=== PATIENT | male | born 1950 | race Caucasian/White ===

== ENCOUNTER 2020-06-12 12:35 | Day surgery (SDC) | payer MEDICARE, BC ==
[2020-06-07 12:35] LABS: BASOPHILS % (AUTO) 0.2 % (0-1); EOSINOPHILS # (AUTO) 0.4 X10'3 (0-0.9); EOSINOPHILS % (AUTO) 8.7 % (0-6); HEMATOCRIT 42.6 % (42.0-52.0); HEMOGLOBIN 14.2 g/dl (14.0-17.9); LYMPHOCYTES # (AUTO) 1.4 X10'3 (1.1-4.8); MEAN CORPUSCULAR HEMOGLOBIN 30.2 PG (27.0-31.0); MEAN CORPUSCULAR HGB CONC 33.3 g/dL (33.0-36.5); MEAN CORPUSCULAR VOLUME 90.5 FL (78-98); MEAN PLATELET VOLUME 7.6 FL (7.4-10.4); MONOCYTES # (AUTO) 0.3 X10'3 (0-0.9); MONOCYTES % (AUTO) 7.4 % (2-12); NEUTROPHILS # (AUTO) 2.2 X10'3 (1.8-7.7); NEUTROPHILS % (AUTO) 50.7 % (42-75); PLATELET COUNT 197 X10'3 (140-440); RED BLOOD COUNT 4.71 X10'6 (4.70-6.10); RED CELL DISTRIBUTION WIDTH 13.7 % (11.5-14.5); WHITE BLOOD COUNT 4.3 X10'3 (4.5-11.0)
[2020-06-07 12:44] LABS: ALBUMIN 3.7 G/DL (3.4-5.0); ANION GAP 6 (8-16); BLOOD UREA NITROGEN 11 MG/DL (7-18); BUN/CREATININE RATIO 14.7 (5.4-32.0); CALCIUM 8.9 MG/DL (8.5-10.1); CHLORIDE 104 MMOL/L (99-107); CREATININE 0.75 MG/DL (0.60-1.10); GLUCOSE 103 MG/DL (70-104); POTASSIUM 4.4 MMOL/L (3.5-5.1); SODIUM 140 MMOL/L (135-145); TOTAL CARBON DIOXIDE 30.5 MMOL/L (24-32); eGFR > 90 ML/MIN
[2020-06-07 12:45] LABS: PARTIAL THROMBOPLASTIN TIME 26 SECONDS (22-32)
[~2020-06-12] VITALS: Ht 172.7 cm; Wt 88.1 kg
[2020-06-12] VITALS (9 sets, daily range): BP systolic 131–164; BP diastolic 75–96
[2020-06-12] MEDS ORDERED: normal saline 1,000 ML IV SCH (12:50)
[2020-06-12] MEDS ORDERED: diphenhydrAMINE 25mg capsule PO PRN (12:50)
[2020-06-12] MEDS ORDERED: LORazepam 0.5 MG tablet PO PRN (12:50)
[2020-06-12] MEDS ORDERED: PANT40TA54 PO (13:20)
[2020-06-12] MEDS ORDERED: METO-395 PO (13:20)
[2020-06-12] MEDS ORDERED: PRAM0.5T12 PO (13:20)
[2020-06-12] MEDS ORDERED: TEST200V10 IM (13:20)
[2020-06-12] MEDS ORDERED: ATOR-2 PO (13:20)
[2020-06-12] MEDS ORDERED: LISI40TA13 PO (13:20)
[2020-06-12] MEDS ORDERED: ASPI-1265 PO (13:20)
[2020-06-12] MEDS ORDERED: GABA-530 PO (13:20)
[2020-06-12] MEDS ORDERED: BUTA-281 PO (13:21)
[2020-06-12] MEDS ORDERED: TRAZ-256 PO (13:23)
[2020-06-12] MEDS ORDERED: LIDOcaine/PRILOcaine 5gm cream TP ONE (13:55)
[2020-06-12] MEDS ORDERED: midazolam 2 mg/2 ml injection ONE (14:32)
[2020-06-12] MEDS ORDERED: nitroGLYCERIN-Tridil 50MG/D5W 250 ML IV ONE (14:32)
[2020-06-12] MEDS ORDERED: fentaNYL/PF 50MCG/1 ML 2ML syringe ONE (14:32)
[2020-06-12] MEDS ORDERED: LIDOcaine 1% (10mg/ml)w/preservative injection 20ml MDV ONE (14:32)
[2020-06-12] MEDS ORDERED: heparin 1,000unit/ml 10ml vial 10 ML ONE (14:32)
[2020-06-12] MEDS ORDERED: verapamil 2.5 mg/ml inj IV ONE (14:32)
[2020-06-12] MEDS ORDERED: iohexol 350MG/ML 100ml bottle IV ONE (14:32)
[2020-06-12] MEDS ORDERED: iohexol 350 MG/ML 50ML vial IV ONE (15:20)
[2020-06-12] MEDS ORDERED: ticagrelor 90mg tablet ONE (15:47)
[2020-06-12] MEDS ORDERED: OXAZEpam 15mg capsule PO PRN (16:20)
[2020-06-12] MEDS ORDERED: nitroGLYCERIN 0.4mg SUBLingual tab SL PRN (16:20)
[2020-06-12] MEDS ORDERED: proCHLORperazine 10 MG/2 ml inj IV PRN (16:20)
[2020-06-12] MEDS ORDERED: HYDROcodone/acetaminophen 10/325mg tab PO PRN (16:20)
[2020-06-12] MEDS ORDERED: ondansetron/PF 4mg/2ml inj IV PRN (16:20)
[2020-06-12] MEDS ORDERED: HYDROcodone/acetaminophen 5mg/325mg tablet PO PRN (16:20)
== END 2020-06-12 19:30 | disposition home or self-care (01) ==
LOC: SSTAY O 12:35
PROVIDERS: ATTEND Internal Medicine Interventional Cardiology
DX: I25.10 Atherosclerotic heart disease of native coronary artery without angina pectoris (principal); R94.39 Abnormal result of other cardiovascular function study; I10 Essential (primary) hypertension; G47.33 Obstructive sleep apnea (adult) (pediatric); E78.5 Hyperlipidemia, unspecified; Z87.891 Personal history of nicotine dependence
CPT/HCPCS: 36415; 80048; 85025; 85610; 85730; 93005; 93458; 99152; 99153; C1725; C1751; C1769; C1876; C1894; C9600; J1644; J2001; J2250; J3010; J7030; Q0163; Q9967; A4620; J3490

== ENCOUNTER 2020-11-17 21:55 | Emergency (ER) | payer MEDICARE, BC ==
[~2020-11-17] VITALS: Ht 172.7 cm; Wt 77.0 kg
[~2020-11-17 21:55] MED LIST: ASPI-1265 PO; ATOR-2 PO; BUTA-281 PO; GABA-530 PO; LISI40TA13 PO; METO-395 PO; PANT40TA54 PO; PRAM0.5T12 PO; TEST200V10 IM; TRAZ-256 PO
[2020-11-17 22:24] LABS: BASOPHILS % (AUTO) 0.9 % (0-1); EOSINOPHILS # (AUTO) 0.2 X10'3 (0-0.9); EOSINOPHILS % (AUTO) 4.7 % (0-6); HEMATOCRIT 38.6 % (42.0-52.0); HEMOGLOBIN 13.1 g/dl (14.0-17.9); LYMPHOCYTES % (AUTO) 19.7 % (21-51); MEAN CORPUSCULAR HEMOGLOBIN 30.7 PG (27.0-31.0); MEAN CORPUSCULAR HGB CONC 33.9 g/dL (33.0-36.5); MEAN CORPUSCULAR VOLUME 90.6 FL (78-98); MEAN PLATELET VOLUME 7.7 FL (7.4-10.4); MONOCYTES # (AUTO) 0.4 X10'3 (0-0.9); MONOCYTES % (AUTO) 6.7 % (2-12); NEUTROPHILS # (AUTO) 3.6 X10'3 (1.8-7.7); PLATELET COUNT 184 X10'3 (140-440); RED BLOOD COUNT 4.26 X10'6 (4.70-6.10); RED CELL DISTRIBUTION WIDTH 13.7 % (11.5-14.5); WHITE BLOOD COUNT 5.3 X10'3 (4.5-11.0)
[2020-11-17 22:47] LABS: ALANINE AMINOTRANSFERASE 39 U/L (12-78); ALBUMIN 3.8 G/DL (3.4-5.0); ALBUMIN/GLOBULIN RATIO 1.1 (1.1-1.5); ALKALINE PHOSPHATASE 64 IU/L (46-116); ANION GAP 9 (8-16); ASPARTATE AMINO TRANSFERASE 26 U/L (10-37); BILIRUBIN,TOTAL 0.3 MG/DL (0.1-1.0); BLOOD UREA NITROGEN 25 MG/DL (7-18); BUN/CREATININE RATIO 20.7 (5.4-32.0); CALCIUM 8.8 MG/DL (8.5-10.1); CHLORIDE 103 MMOL/L (99-107); CREATININE 1.21 MG/DL (0.60-1.10); GLUCOSE 144 MG/DL (70-104); POTASSIUM 4.3 MMOL/L (3.5-5.1); SODIUM 140 MMOL/L (135-145); TOTAL CARBON DIOXIDE 27.7 MMOL/L (24-32); TOTAL PROTEIN 7.3 G/DL (6.4-8.2); eGFR 59 ML/MIN
[2020-11-17] MEDS ORDERED: normal saline 1000ML IV soln IVB ONE (23:15)
[2020-11-17] MEDS ORDERED: pantoprazole 40 MG vial IV ONE (23:15)
[2020-11-18 01:52] VITALS: BP 102/63
--- NOTE | 2020-11-18 02:11 | NUR ---
pt gait tested and MD notified.
== END 2020-11-18 02:33 | disposition home or self-care (01) ==
LOC: ER 21:56
DX: R42 Dizziness and giddiness (principal); R11.0 Nausea; R63.4 Abnormal weight loss; I25.10 Atherosclerotic heart disease of native coronary artery without angina pectoris; G89.29 Other chronic pain; I10 Essential (primary) hypertension; Z87.19 Personal history of other diseases of the digestive system; Z95.5 Presence of coronary angioplasty implant and graft; Z87.81 Personal history of (healed) traumatic fracture; Z79.82 Long term (current) use of aspirin; Z79.899 Other long term (current) drug therapy; Z68.25 Body mass index [BMI] 25.0-25.9, adult
CPT/HCPCS: 36415; 71045; 80053; 83880; 84484; 85025; 93005; 96361; 96374; 99285; C9113; J7030